=== PATIENT | male | born 1980 | race Caucasian/White ===

== ENCOUNTER 2018-03-02 20:45 | Observation (INO) ==
[2018-03-02] MEDS ORDERED: *HR* Nalbuphine 10 MG/ML AMPUL IVP ONE (23:05)
[2018-03-02] MEDS ORDERED: Ondansetron 4 MG/2 ML VIAL IVP ONE (23:05)
[2018-03-02] MEDS ORDERED: 0.9 % Sodium Chloride 1,000 ML IVC ONE (23:05)
--- NOTE | 2018-03-02 23:09 | Emergency Department Note ---
Disposition Clinical Impression: Biliary colic Disposition: Admitted As Inpatient Condition: Fair Abdominal Pain HPI - General Chief Complaint: ED Abdominal Pain Stated Complaint: abdominal pain Time Seen by Provider: 03/02/18 22:03 Source: patient, family Mode of arrival: private vehicle Limitations: no limitations Nursing Notes Reviewed: Yes Vital Signs Reviewed: Yes - History of Present Illness Pt Subjective Complaint: abdominal pain Onset (ago): week(s) Consistency: constant Location: RUQ, epigastric Pain Severity: moderate, severe Pain Scale: 7 Quality: stabbing, aching, fullness, sharp Radiation: none Migration to: no migration Improves with: nothing Worsens with: nothing Context: history of similar episodes (diagnosed with biliary colic [address] Strong this past . Is scheduled for meredith on Mar 17. Returns to ED tonight for increased pain. ) Associated symptoms: Reports: denies other symptoms. Denies: nausea, vomiting, diarrhea, fever, chills, constipation, dysuria, hematemesis, hematochezia, melena, hematuria, anorexia, syncope Treatments prior to arrival: NSAIDs, OTC medications - Related Data Previous Rx's Medication Instructions Recorded Cyclobenzaprine [Flexeril] 10 mg PO TID 10 Days tablet 01/24/15 Hydrocodone/Acetaminophen [[place] 1 each PO 1-3XD PRN 5 Days tablet 01/24/15 10-325 Tablet] Clindamycin [Cleocin] 150 mg PO Q6HR #8 capsule 01/10/16 OxyCODONE Immed Rel [Roxicodone 5 5 - 10 mg PO Q6HR PRN #30 tablet 01/10/16 MG] HYDROcodone/Acet 5/325 mg [[place] 1 - 2 tab PO Q6H PRN 3 Days #10 tab 02/21/18 5-325 mg] Ondansetron ODT [Zofran ODT] 4 mg SL Q8HR PRN #12 tab.rapdis 02/21/18 Allergies Allergy/AdvReac Type Severity Reaction Status Date / Time bupropion [From Wellbutrin] AdvReac Nausea Verified 02/21/18 07:14 steriod Allergy Rash Uncoded 01/10/16 11:49 All systems ED: reviewed and negative except as stated. Review of Systems: As Per HPI Constitutional: Denies: fever, chills, weakness Cardiovascular: Denies: chest pain, palpitations, edema, syncope Respiratory: Denies: dyspnea Gastrointestinal: Reports: as per HPI, abdominal pain. Denies: nausea, vomiting , diarrhea, constipation Genitourinary: Denies: dysuria, hematuria Musculoskeletal: Denies: back pain Neurological: Denies: weakness Hematological/Lymphatic: Denies: easy bleeding, easy bruising Abdominal Pain PMH - Past Medical History Medical history: Reports: GERD, hypertension, other Male Surgical History: Reports: Adenoidectomy, orthopedic, other, Tonsillectomy Psychiatric history: Reports: anxiety, depression, PTSD - Social History Smoking status: Current every day smoker Alcohol use: Reports: none Drug use: Reports: none Physical Exam - General Limitations: no limitations General appearance: alert, in no apparent distress - Head Head exam: atraumatic, normocephalic, normal inspection - Eye Eye exam: Present: normal appearance, PERRL. Absent: scleral icterus, conjunctival injection, periorbital swelling - ENT ENT exam: mucous membranes moist - Neck Neck exam: Present: normal inspection, full ROM, trachea midline. Absent: meningismus - Chest Chest inspection: Present: normal inspection - Respiratory Respiratory exam: Present: normal lung sounds bilaterally. Absent: respiratory distress - Cardiovascular Cardiovascular exam: Present: regular rate, normal rhythm, normal heart sounds - Abdominal Exam Abdominal exam: Present: soft, tenderness. Absent: distention, guarding, rebound, organomegaly, ascites, mass, pulsatile mass Abdominal tenderness: Present: RUQ, epigastrium - Extremities Exam Extremities exam: Present: normal inspection - Back Exam Back exam: Present: normal inspection - Neurological Exam Neurological exam: Present: alert, oriented X3, CN II-XII intact, normal gait - Psychiatric Psychiatric exam: Present: normal affect, normal mood - Skin Skin exam: Present: warm, dry, intact, normal color Course Course Narrative: Patient returns to the ER for evaluation and treatment of right upper quadrant abdominal pain. I saw this patient on February 21 for similar symptoms. He had a CT and lab work done. He was diagnosed with biliary colic second to cholelithiasis. He followed up with Dr. Strong this past . He is scheduled to have his gallbladder removed on the . He returns today because of intractable pain. He is not vomiting and has had no fever or chills. Labs and meds have been ordered as well as a right upper quadrant ultrasound to evaluate for possible cholecystitis. Pain is not improved with initial dose of pain medication. Patient's labs are normal with exception of glucose of 115. Right upper quadrant ultrasound is read by the radiologist as cholelithiasis without pericholecystic fluid or wall thickening. Case discussed with Dr. Strong. He will admit the patient to his service. - Consultations Consultation #1: Case discussed with Dr. Strong. He will admit the patient to his service. Time: 01:28 Vital Signs Temperature 97.9 F 03/02/18 21:02 Pulse Rate 70 03/02/18 21:02 Respiratory Rate 18 03/02/18 21:02 Blood Pressure 143/87 03/02/18 21:02 O2 Sat by Pulse Oximetry 98 03/02/18 21:02 Temperature 97.9 F 03/02/18 21:12 Pulse Rate 70 03/02/18 21:12 Respiratory Rate 18 03/02/18 21:12 Blood Pressure 143/87 03/02/18 21:12 O2 Sat by Pulse Oximetry 98 03/02/18 21:12 Oxygen Delivery Oxygen Delivery Room Air Abdominal Pain - Medical Records Medical records reviewed: Yes I reviewed the patient's medical records. - Lab Data Lab results reviewed: Yes I reviewed the patient's lab results. Lab results narrative: Laboratory Last Values WBC 9.4 K/mcL (4.3-11.1) 03/02/18 23:18 RBC 5.64 M/mcL (4.19-5.50) H 03/02/18 23:18 Hgb 16.5 g/dL (12.9-16.9) 03/02/18 23:18 Hct 47.2 % (37.5-50.1) 03/02/18 23:18 MCV 83.7 fL (83.0-100.0) 03/02/18 23:18 MCH 29.3 pg (28.0-33.3) 03/02/18 23: MCHC 35.0 g/dL (31.6-35.5) 03/02/18 23:18 RDW 13.0 % (11.5-14.5) 03/02/18 23:18 Plt Count 252 K/mcL (140-400) 03/02/18 23:18 MPV 11.0 fL (9.4-12.4) 03/02/18 23:18 Immature Gran % 0.4 % (0-4) 03/02/18 23:18 Seg Neutrophils % 60.7 % 03/02/18 23:18 Lymphocytes % 29.7 % 03/02/18 23:18 Monocytes % 7.1 % 03/02/18 23:18 Eosinophils % 1.6 % 03/02/18 23:18 Basophils % 0.5 % 03/02/18 23:18 Neutrophils # 5.7 K/mcL (1.6-8.9) 03/02/18 23:18 Lymphocytes # 2.8 K/mcL (0.6-4.6) 03/02/18 23:18 Monocytes # 0.7 K/mcL (0.0-1.3) 03/02/18 23:18 Eosinophils # 0.2 K/mcL (0.0-0.6) 03/02/18 23:18 Basophils # 0.1 K/mcL (0.0-0.2) 03/02/18 23:18 Sodium 138 mEq/L (136-145) 03/02/18 23:18 Potassium 3.6 mEq/L (3.5-5.1) 03/02/18 23:18 Chloride 104 mEq/L (98-107) 03/02/18 23:18 Carbon Dioxide 25 mEq/L (23-29) 03/02/18 23:18 BUN 11 mg/dL (6-20) 03/02/18 23:18 Creatinine 0.99 mg/dL (0.70-1.30) 03/02/18 23:18 Est GFR ( Amer) > 60 (> 60) 03/02/18 23:18 Est GFR (Non-Af Amer) > 60 (> 60) 03/02/18 23:18 BUN/Creatinine Ratio 11 (6-26) 03/02/18 23:18 Glucose 115 mg/dL (70-105) H 03/02/18 23:18 Calculated Osmolality 286 (280-300) 03/02/18 23:18 Calcium 9.6 mg/dL (8.6-10.3) 03/02/18 23:18 Total Bilirubin 0.4 mg/dL (0.3-1.0) 03/02/18 23:18 AST 24 Units/L (13-39) 03/02/18 23:18 ALT 37 Units/L (7-52) 03/02/18 23:18 Alkaline Phosphatase 72 Units/L (34-104) 03/02/18 23:18 Serum Total Protein 7.0 g/dL (6.4-8.9) 03/02/18 23:18 Albumin 4.2 g/dL (3.5-5.7) 03/02/18 23:18 Globulin 2.8 g/dL (2.4-3.5) 03/02/18 23:18 Albumin/Globulin Ratio 1.5 (1.1-2.2) 03/02/18 23:18 Lipase 15 Units/L (11-82) 03/02/18 23:18 - Radiology Data Radiology results reviewed: Yes I reviewed the patient's radiology results. Gallbladder Ultrasound 03/02/18 22:03 IMPRESSION: Cholelithiasis, without sonographic evidence of cholecystitis. With continued clinical concern, recommend HIDA scan for further evaluation. Fatty, enlarged liver. D/ / Adan Billy MD / Adan Billy MD Interpreting Provider: Adan Billy MD
[2018-03-02 23:28] LABS: Basophils # 0.1 K/mcL (0.0-0.2); Basophils % 0.5 %; Eosinophils # 0.2 K/mcL (0.0-0.6); Eosinophils % 1.6 %; Hematocrit 47.2 % (37.5-50.1); Hemoglobin 16.5 g/dL (12.9-16.9); Immature Granulocytes % 0.4 % (0-4); Lymphocytes # 2.8 K/mcL (0.6-4.6); Lymphocytes % 29.7 %; Mean Corpuscular Hemoglobin 29.3 pg (28.0-33.3); Mean Corpuscular Volume 83.7 fL (83.0-100.0); Monocytes # 0.7 K/mcL (0.0-1.3); Monocytes % 7.1 %; Neutrophils # 5.7 K/mcL (1.6-8.9); Platelet Count 252 K/mcL (140-400); Red Blood Count 5.64 M/mcL (4.19-5.50); Segmented Neutrophils % 60.7 %
[2018-03-02 23:45] LABS: Alanine Aminotransferase 37 Units/L (7-52); Albumin 4.2 g/dL (3.5-5.7); Albumin/Globulin Ratio 1.5 (1.1-2.2); Alkaline Phosphatase 72 Units/L (34-104); Aspartate Amino Transferase 24 Units/L (13-39); BUN/Creatinine Ratio 11 (6-26); Bilirubin,Total 0.4 mg/dL (0.3-1.0); Blood Urea Nitrogen 11 mg/dL (6-20); Calcium 9.6 mg/dL (8.6-10.3); Carbon Dioxide 25 mEq/L (23-29); Chloride 104 mEq/L (98-107); Globulin 2.8 g/dL (2.4-3.5); Glucose 115 mg/dL (70-105); Lipase 15 Units/L (11-82); Osmolality,Calculated 286 (280-300); Potassium 3.6 mEq/L (3.5-5.1); Sodium 138 mEq/L (136-145); eGFR For Non-African Americans > 60 (> 60)
[2018-03-03] MEDS ORDERED: *HR* FentaNYL (PF) 100 MCG/2 ML VIAL IVP ONE (00:32)
[2018-03-03] MEDS ORDERED: Ondansetron 4 MG/2 ML VIAL IVP PRN ×2 (01:42→14:17)
[2018-03-03] MEDS ORDERED: Pantoprazole 40 MG VIAL IVP SCH (02:00)
[2018-03-03] MEDS: 0.9 % Sodium Chloride 1,000 ML IVC SCH ×2 (02:39→08:07)
[2018-03-03] MEDS: MORPHINE SUL Oral CONC 10 MG/0.5 ML ORAL.SYG SL PRN ×2 (03:50→08:35)
[2018-03-03] MEDS ORDERED: *HR* LORazepam 2 MG/ML VIAL IVP ONE (08:09)
--- NOTE | 2018-03-03 08:27 | General Surg History&Physical ---
<Unique Rosales - Last Filed: 03/03/18 08:22> Date of Encounter: 03/03/18 Time of Encounter: 08:00 Assessment and Plan (1) Biliary colic Current Visit: Yes Status: Acute The assessment and plan as outlined above was discussed with the patient and/or family members who expressed understanding and agreement. All questions were answered. Will plan for surgical intervention (laparoscopic cholecystectomy without cholangiogram) in the next 24 to 48 hours. Recommendations, risks, and benefits have been reviewed with the patient and his and he is agreeable to proceed. A signed consent has been left with the supercharge repair supervisor in the surgery department. He has active outside the hospital and is able to achieve greater than 4 Mets of activity. We will, however, order of preoperative EKG given his smoking and obesity history. Plan: G.I. and DVT prophylaxis continue supportive care and discomfort management NPO IV fluids IV antibiotics scheduled duonebs in the setting of preoperative and significant smoking history aggressive pulmonary toileting to begin now consult RT EKG (2) Cholelithiasis Current Visit: Yes Status: Acute The assessment and plan as outlined above was discussed with the patient and/or family members who expressed understanding and agreement. All questions were answered. See above Qualifiers: Cholelithiasis location: gallbladder Cholecystitis presence: without cholecystitis Biliary obstruction: without biliary obstruction Qualified Code(s): K80.20 - Calculus of gallbladder without cholecystitis without obstruction (3) Sleep apnea Current Visit: Yes Status: Acute The assessment and plan as outlined above was discussed with the patient and/or family members who expressed understanding and agreement. All questions were answered. See assessment and plan above otherwise continue home CPAP use that his previous settings Qualifiers: Sleep apnea type: unspecified type Qualified Code(s): G47.30 - Sleep apnea , unspecified (4) Smoking history Current Visit: Yes Status: Acute The assessment and plan as outlined above was discussed with the patient and/or family members who expressed understanding and agreement. All questions were answered. Smoking cessation is encouraged. Scheduled duonebs starting now aggressive pulmonary toileting starting now patient states duonebs give him "panic attacks." I will order a one-time dose of 0.5 mg lorazepam IV (5) Morbid obesity with BMI of 40.0-44.9, adult Current Visit: Yes Status: Acute The assessment and plan as outlined above was discussed with the patient and/or family members who expressed understanding and agreement. All questions were answered. Dietary consult History of Present Illness Chief complaint: right upper abdominal pain HPI: Mr. Saunders is a 37 year old male who presented on 03/02/2108 for complaints of RUQ pain. He was recently seen by Dr. Strong with reports of a sensation of gas bubble for the previous week, right upper quadrant pain that was sharpen stabbing, radiated to the right upper back, resolved and then returned 2 days later. That time he reported nausea without vomiting, denied diarrhea or constipation. A CT scan on 02/21/2018 demonstrated gallstones, large size, and at the level of the cystic duct. Plans made for a laparoscopic cholecystectomy for biliary colic. He presented to the emergency department at the date listed with complaints of worsening abdominal pain that is constant, moderate to severe, 7 out of 10, stabbing, aching, fullness, no radiation, no aggravating or alleviating factors , and associated with nausea, and vomiting. He denies fever, chills, chest pain , shortness of breath, easy bruising, black, bloody, or tarry stool, changes in bowel habits. He does noted history of sleep apnea and is using his nasal CPAP upon my entry into the room. His past medical, surgical, and social history's have been reviewed and updated as indicated per the EMR. Past Med Surg Social Fam HX - Past Medical History Source: patient, old records reviewed Medical history: GERD (Oconnell's esophagus), hypertension, other (Sleep apnea) Additional medical history: hiatal hernia. sleep apnea Psychiatric history: anxiety, depression, PTSD - Past Surgical History Surgical History: tonsilectomy, other (Bilateral tympanic ostomy tubes, endoscopy times 4, right shoulder surgery) Additional surgical history: ear tubes - Social History Smoking Status: Current every day smoker Packs per day: One pack per day for greater than 20 years Smokeless Tobacco Status: No Alcohol use: none Drug use: none Occupational status: employed Current living situation: Home - Independent Activity Level: Independent ambulation - Family History Mother Family Member Ethnicity: Non- Living Status: Still Living Hx Family Endocrine Disorder: Yes (dm) Father Son Family Member Ethnicity: Non- Hx Family Cardiac Disorders: Yes (htn) Hx Family Endocrine Disorder: Yes (dm) Medications and Allergies Aspirin [Lo-Dose Aspirin EC] 81 mg PO DAILY 03/03/18 [History] Cetirizine HCl [All Day Allergy] 10 mg PO DAILY 03/03/18 [History] Cholecalciferol (D-3) [Vitamin D] 2,000 unit PO DAILY 03/03/18 [History] Dicyclomine [Bentyl] 10 mg PO DAILY 03/03/18 [History] Esomeprazole Magnesium [Nexium] 40 mg PO BID 03/03/18 [History] Montelukast [Singulair] 10 mg PO HS 03/03/18 [History] [place]-3 Fatty Acids [Fish Oil] 300 mg PO DAILY 03/03/18 [History] Potassium Chloride [Klor-Con 10] 10 meq PO DAILY 03/03/18 [History] Propranolol [Inderal] 30 mg PO TID 03/03/18 [History] Sertraline 03/03/18 [History] 3 Allergy/AdvReac Type Severity Reaction Status Date / Time bupropion [From Wellbutrin] AdvReac Nausea Verified 02/21/18 07:14 steriod Allergy Rash Uncoded 01/10/16 11:49 Review of Systems All systems PM: reviewed and no additional remarkable complaints except as stated All systems PM: The remainder of the systems were reviewed and are negative General Surgery Exam Initial Vital Signs Temp Pulse Resp BP Pulse Ox 97.9 F 70 18 143/87 98 03/02/18 21:02 03/02/18 21:02 03/02/18 21:02 03/02/18 21:02 03/02/18 21:02 VITAL SIGNS: Reviewed. See [facility] GENERAL: In no apparent distress. HEENT: Normocephalic, atraumatic, pupils are equal and reactive, extraocular motions intact, oropharynx is pink and moist, there is no neck adenopathy or JVD noted. Nasal CPAP in use CHEST/RESPIRATORY: The thorax is free from signs of trauma. Lung sounds: clear to auscultation, normal respiratory effort CARDIAC: Distant heart tones; Regular rate and rhythm. Normal S1 and S2, without murmurs, gallops, or rubs. VASCULAR: No Edema. 2+ peripheral pulses. ABDOMEN: obese, protuberant, active bowel sounds, positive Negro sign MUSCULOSKELETAL: Good range of motion of all major joints. Extremities without clubbing, cyanosis or edema. NEUROLOGIC EXAM: Alert and oriented x 3. Speech normal. Follows commands. PSYCHIATRIC: Mood normal. SKIN: No rash or lesions. Results - Labs 03/02/18 23:18 03/02/18 23:18 Abnormal lab results RBC 5.64 M/mcL (4.19-5.50) H 03/02/18 23:18 Glucose 115 mg/dL (70-105) H 03/02/18 23:18 All other labs normal. - Imaging CT scan - abdomen: report reviewed (02/21/2018) CT scan - pelvis: report reviewed US - abdomen: report reviewed, image reviewed <Wesley Strong - Last Filed: 03/03/18 10:06> Date of Encounter: 03/03/18 Assessment and Plan (1) Biliary colic Current Visit: Yes Status: Acute The assessment and plan as outlined above was discussed with the patient and/or family members who expressed understanding and agreement. All questions were answered. (2) Cholelithiasis Current Visit: Yes Status: Acute The assessment and plan as outlined above was discussed with the patient and/or family members who expressed understanding and agreement. All questions were answered. Qualifiers: Cholelithiasis location: gallbladder Cholecystitis presence: without cholecystitis Biliary obstruction: without biliary obstruction Qualified Code(s): K80.20 - Calculus of gallbladder without cholecystitis without obstruction (3) Sleep apnea Current Visit: Yes Status: Acute The assessment and plan as outlined above was discussed with the patient and/or family members who expressed understanding and agreement. All questions were answered. Qualifiers: Sleep apnea type: unspecified type Qualified Code(s): G47.30 - Sleep apnea , unspecified (4) Smoking history Current Visit: Yes Status: Acute The assessment and plan as outlined above was discussed with the patient and/or family members who expressed understanding and agreement. All questions were answered. (5) Morbid obesity with BMI of 40.0-44.9, adult Current Visit: Yes Status: Acute The assessment and plan as outlined above was discussed with the patient and/or family members who expressed understanding and agreement. All questions were answered. History of Present Illness HPI: Mr. Saunders is a 37 year old male Review of Systems All systems PM: The remainder of the systems were reviewed and are negative General Surgery Exam Initial Vital Signs Temp Pulse Resp BP Pulse Ox 97.9 F 70 18 143/87 98 03/02/18 21:02 03/02/18 21:02 03/02/18 21:02 03/02/18 21:02 03/02/18 21:02 Results - Labs 03/02/18 23:18 03/02/18 23:18 Abnormal lab results RBC 5.64 M/mcL (4.19-5.50) H 03/02/18 23:18 Glucose 115 mg/dL (70-105) H 03/02/18 23:18 All other labs normal. - Attending Attestation I have personally performed a face to face evaluation on this patient. I have reviewed and agree with the care plan. History and Exam by me shows: I reviewed the above assessment and evaluation with the mesh practitioner and agree with the above plan. We will perform a laparoscopic cholecystectomy today.
[2018-03-03] MEDS ORDERED: Piperacillin/Tazobactam 3.375 GM in Water for inj. (sterile) 20 ML 20 ML IVP SCH (08:38)
[2018-03-03] MEDS ORDERED: Piperacillin/Tazobactam 3.375 GM in 0.9 % Sodium Chloride Mini Bag 100 ML IVP SCH ×2 (09:15→19:00)
--- NOTE | 2018-03-03 10:09 | Anesthesia Evaluation PreOp ---
Date of Encounter: 03/03/18 Time of Encounter: 10:45 - Past History Planned Operation: Laparoscopic Cholecystectomy Cardiac History: Denies any Significant Hx Pulmonary History: Smoker (21 years), JOAN Dx (uses CPAP) MARKETING UNDERWRITER History: Denies Any Significant HX Other Medical History: GERD, Other (obesity BMI=41.1) Anesthesia History: Past Anesthesia, Problems (wild emergence) Alcohol Use: occasionally Drug use: none Medications and Allergies Aspirin [Lo-Dose Aspirin EC] 81 mg PO DAILY 03/03/18 [History] Cetirizine HCl [All Day Allergy] 10 mg PO DAILY 03/03/18 [History] Cholecalciferol (D-3) [Vitamin D] 2,000 unit PO DAILY 03/03/18 [History] Dicyclomine [Bentyl] 20 mg PO DAILY 03/03/18 [History] Esomeprazole Magnesium [Nexium] 40 mg PO BID 03/03/18 [History] Montelukast [Singulair] 10 mg PO HS 03/03/18 [History] [place]-3 Fatty Acids [Fish Oil] 300 mg PO DAILY 03/03/18 [History] Potassium Chloride [Klor-Con 10] 10 meq PO DAILY 03/03/18 [History] Propranolol [Inderal] 30 mg PO TID 03/03/18 [History] Sertraline [Zoloft] 50 mg PO DAILY 03/03/18 [History] 3 Allergy/AdvReac Type Severity Reaction Status Date / Time bupropion [From Wellbutrin] AdvReac Nausea Verified 02/21/18 07:14 steriod Allergy Rash Uncoded 01/10/16 11:49 - Meds/Allergy Pre-op Review Medications Reviewed: Yes Allergies Reviewed: Yes Beta Blockers on Current Med List: No Anesthesia Results - Labs 03/02/18 23:18 03/02/18 23:18 - Imaging EKG: report reviewed (03/03/2018 SINUS RHYTHM, LOW VOLTAGE PRECORDIAL LEADS) Anesthesia Exam Vital Signs/O2 Sat, Most Current Temp Pulse Resp BP Pulse Ox 97.7 F 52 16 120/79 96 03/03/18 07:33 03/03/18 07:33 03/03/18 07:33 03/03/18 07:33 03/03/18 07:33 Height: 6'2''/1.88m Weight: 320 lbs/145 kg NPO (# of Hours): 8 Pain Scale: 5 (abdomen) Pain Scale Used: Numeric (1 - 10) - HEENT Pupil (Motor): EOMI Mallampati: II Teeth: Edentulous Oral Opening: Greater than 3 - MARKETING UNDERWRITER LOC: Oriented MARKETING UNDERWRITER Motor: Normal RUE, Normal LUE, Normal RLE, Normal LLE, Normal Face MARKETING UNDERWRITER Sensory: Normal: RUE, LUE, RLE, LLE, Face - Cardiac Rhythm: Regular Murmur: None - Pulmonary Breath Sounds: bilateral Clear Respiratory Effort: Symmetrical Anesthesia Assess/Plan ASA Score: 3 Modified Amberly Scale for Level of Consciousness: Cooperative, oriented, and tranquil Anesthetic Plan: General Monitoring Plan: Standard Monitors Recovery Plan: PACU
[2018-03-03] MEDS ORDERED: Bupivacaine/EPI 1:200k 0.5%PF 30 ML VIAL ONE (10:20)
[2018-03-03] MEDS ORDERED: Dexamethasone 4 MG/ML VIAL ONE (10:25)
[2018-03-03] MEDS ORDERED: *HR* Rocuronium Bromide 50 MG/5 ML VIAL ONE (10:25)
[2018-03-03] MEDS ORDERED: *HR* FentaNYL (PF) 100 MCG/2 ML VIAL ONE ×3 (10:25→12:02)
[2018-03-03] MEDS ORDERED: Lidocaine -MPF 2% 2 ML VIAL ONE (10:25)
[2018-03-03] MEDS ORDERED: *HR* Midazolam HCl 2 MG/2 ML VIAL ONE (10:25)
[2018-03-03] MEDS ORDERED: Ondansetron 4 MG/2 ML VIAL ONE (10:25)
[2018-03-03] MEDS ORDERED: *HR* Propofol 200 MG/20 ML VIAL IVP ONE (10:25)
[2018-03-03] MEDS ORDERED: *HR* Succinylcholine 200 MG/10 ML VIAL IVP ONE (10:25)
[2018-03-03] MEDS ORDERED: Lidocaine -MPF 4% 5 ML AMPUL ONE (10:26)
[2018-03-03] MEDS: Ipratropium/Albuterol Neb 3 ML IH SCH ×2 (10:31→10:32)
[2018-03-03] MEDS ORDERED: Acetaminophen IV 1,000 MG/100 ML INFUS..BTL ONE (10:49)
[2018-03-03] MEDS ORDERED: *HR* OxyCODONE Immed Rel 5 MG TABLET PO PRN (11:26)
[2018-03-03] MEDS ORDERED: *HR* Morphine 2 MG/ML SYRINGE IVP PRN (11:26)
[2018-03-03] MEDS ORDERED: Neostigmine Methylsulfate 3 MG/3 ML SYRINGE ONE (11:38)
[2018-03-03] MEDS ORDERED: *HR* Magnesium Sulfate 1 GM/2 ML VIAL ONE (12:02)
--- NOTE | 2018-03-03 12:05 | Operative Note ---
Date of procedure: 03/03/18 Pre-op diagnosis: Biliary colic Post-op diagnosis: same Procedure: Laparoscopic cholecystectomy Anesthesia: GETA Surgeon: Wesley Strong Was there an phlebotomy lab assistant present: Yes Section Leader: Tessa Velez Estimated blood loss (cc): 40 Specimen: gallbladder and contents Condition: stable Disposition: PACU Procedure in Detail: Date of surgery: 03/03/18 After properly identifying the patient, the patient was brought to the operating room and placed in the supine position. After proper IV sedation was achieved followed by general endotracheal intubation, the patient's abdomen was prepped and draped in a normal sterile fashion. A timeout was performed noting the patient's name and type of procedure to be performed. An 11 blade scalpel was used to make an incision above the level of the umbilicus down to the level of the rectus fascia which was also incised. Once the abdomen was entered a 12 mm port was placed to the incision and the abdomen was insufflated with carbon dioxide. A laparoscopic camera was placed through the port which showed no injury to the intra-abdominal organs upon entry. A subxiphoid 5 mm port and a right subcostal margin 5 mm port were then placed under direct camera visualization. The patient was placed in a Trendelenburg position and the gallbladder was identified and retracted superiorly. The peritoneal covering overlying the cystic duct and cystic artery were then bluntly dissected away with a [place] dissector. The cystic duct and cystic artery with a further isolated, clipped with laparoscopic clips, and incised laparoscopic scissors. The gallbladder was then dissected away from the gallbladder fossa with Bovie cauterization while Bovie cautery was used to maintain hemostasis. Once the gallbladder was dissected free it was removed from the abdomen via an Endobag and reinspection of the right upper quadrant demonstrated maintenance of hemostasis. The right upper quadrant was irrigated with normal saline solution and all ports were then removed from the abdomen after the abdomen was desufflated. The rectus fascia for the supraumbilical incision was reapproximated with a [id number] 0 Vicryl suture. The subcutaneous tissue was reapproximated with a 3-0 Vicryl suture and the epidermal and dermal layers for the remaining incisions were closed with 4-0 Monocryl sutures. Needle, sponge, and answering counts were correct 2 and the incisions were covered with Steri-Strips and Band -Aids. The patient was aroused from IV sedation, extubated in the operating room without complication, and transported to the recovery room stable condition.
[2018-03-03] MEDS ORDERED: Ringers Solution, Lactated 1,000 ML ONE (12:47)
--- NOTE | 2018-03-03 13:25 | Anesthesia Evaluation Post Op ---
Date of Encounter: 03/03/18 Time of Encounter: 13:25 - Vital Signs Vital Signs: Vital Signs/O2 Sat, Most Current Temp Pulse Resp BP Pulse Ox 97.8 F 69 17 143/89 97 03/03/18 12:50 03/03/18 13:10 03/03/18 13:10 03/03/18 13:10 03/03/18 13:00 - Lungs Lungs: Clear Ascult./Percussion - Airway Airway: Non-obstructed - Cardiovascular Regular Rate - Mental Status Mental Status: Alert & Oriented, Answers Appropriately - Pain Pain Scale: 5 Pain Scale used: Numeric (1 - 10) - Nausea Vomiting Nausea Vomiting: Not Present - Hydration Hydration: Ice chips, Has not voided - Discharge PostOp Status: Transfer Patient to floor
[2018-03-03] MEDS ORDERED: *HR* OxyCODONE/APAP 7.5/325 TABLET PO PRN (14:17)
[2018-03-03] MEDS ORDERED: MORPHINE SUL Oral CONC 10 MG/0.5 ML ORAL.SYG SL PRN (14:17)
[2018-03-03] MEDS ORDERED: 0.9 % Sodium Chloride 1,000 ML IVC SCH (14:17)
[2018-03-03] MEDS ORDERED: Ipratropium/Albuterol Neb 3 ML IH SCH (16:00)
--- NOTE | 2018-03-03 16:01 | Discharge Summary ---
Orders not resulted at time of discharge: Pending orders 03/03/18 12:24 Surgical Pathology [PTH] Routine 03/04/18 04:00 Bilirubin, Total And Fractions AM 0400 Complete Blood Count [HEME] AM 0400 Comprehensive Metabolic Panel AM 0400 Date of Encounter: 03/03/18 Time of Encounter: 16:00 - Discharge Diagnosis (1) Biliary colic Priority: Primary Status: Acute General Surgery Exam Initial Vital Signs Temp Pulse Resp BP Pulse Ox 97.9 F 70 18 143/87 98 03/02/18 21:02 03/02/18 21:02 03/02/18 21:02 03/02/18 21:02 03/02/18 21:02 - General physical appearance well developed, well nourished, no distress - Eyes normal ocular movement - ENT normal mucosa, atraumatic, normocephalic - Neck trachea midline - Respiratory normal respiratory effort, clear to auscultation - Cardiovascular Cardiovascular exam: Present: RRR - Abdomen Abdomen general surgery: Present: bowel sounds present, soft, tender (expected) - Incision Incision: Present: clean and dry, intact - Integumentary Integumentary general surgery: Present: warm and dry - Neurologic Present: CN 2-12 grossly intact - Psychiatric Psychiatric general surgery: Present: appropriate, oriented to person, oriented to place, oriented to time, speech is normal, memory intact - Hospital Course Hospital course: Mr. Saunders is a 37 year old male with biliary colic. He was taken to the operating room for a laparoscopic cholecystectomy with Dr. Strong. Post- operative, he is tolerating liquids without nausea/vomiting. His vitals are stable and he is afebrile. His pain is well controlled. He is voiding and ambulating without difficulty. Will discharge to home and plan for outpatient follow-up in the next 10-14 days. - Time Spent with Patient Total time spent providing and/or coordinating discharge services: Less than 30 minutes - Discharge Medications Prescriptions: OxyCODONE/APAP 5/325 [Percocet 5/325 MG] 1 each PO Q6HR PRN 5 Days #20 tablet PRN Reason: Pain Docusate [Colace] 100 mg PO BID #30 capsule Ibuprofen [Ibu] 800 mg PO TID #50 tablet Home Medications: Aspirin [Lo-Dose Aspirin EC] 81 mg PO DAILY 03/03/18 [History] Cetirizine HCl [All Day Allergy] 10 mg PO DAILY 03/03/18 [History] Cholecalciferol (D-3) [Vitamin D] 2,000 unit PO DAILY 03/03/18 [History] Dicyclomine [Bentyl] 20 mg PO DAILY 03/03/18 [History] Docusate [Colace] 100 mg PO BID #30 capsule 03/03/18 [Rx] Esomeprazole Magnesium [Nexium] 40 mg PO BID 03/03/18 [History] Ibuprofen [Ibu] 800 mg PO TID #50 tablet 03/03/18 [Rx] Montelukast [Singulair] 10 mg PO HS 03/03/18 [History] [place]-3 Fatty Acids [Fish Oil] 300 mg PO DAILY 03/03/18 [History] OxyCODONE/APAP 5/325 [Percocet 5/325 MG] 1 each PO Q6HR PRN 5 Days #20 tablet [Rx] Potassium Chloride [Klor-Con 10] 10 meq PO DAILY 03/03/18 [History] Propranolol [Inderal] 30 mg PO TID 03/03/18 [History] Sertraline [Zoloft] 50 mg PO DAILY 03/03/18 [History] Allergies/Adverse Reactions: 3 Allergy/AdvReac Type Severity Reaction Status Date / Time bupropion [From Wellbutrin] AdvReac Nausea Verified 02/21/18 07:14 steriod Allergy Rash Uncoded 01/10/16 11:49 Date of admission: 03/03/18 01:38 [facility]: [facility] Consults: 03/03/18 08:37 consult to duct cleaner [Consult to Nutrition] [CONS] Routine Comment: morbid obesity, smoking history, risk prevention Consulting Provider: NUTRITION Reason for Dietary Consult: Diet Education Discharging clinician: Chiara Patel Anticipated date of discharge: 03/03/18 Labs on day of discharge: Labs from last 24 hours 03/03/18 06:58 POC Glucose 104 H - Patient Status Disposition: Home, Self-Care Condition: Good Functional capacity at discharge: independent ambulation Overall status at discharge: patient is progressing back to baseline - Discharge Instructions Follow Up With: [facility]Primary Care Provider[facility] - Chiara Patel NUTRITION HELPER [Advanced Practice Nurse] - 03/16/18 2:15 pm (surgery) Forms: Work/School Release Additional Instructions: Surgery instructions: #1 May shower 03/05/18, no tub bath or swimming for 2 weeks #2 No lifting/pushing/pulling greater than 15 lb. for a total of 2 weeks #3 No driving until off narcotics and able to react safely in the care #4 Cleanse incisions with soap and water and pat dry daily #5 May climb stairs - Diet and Activity Activity: other (see additional instructions above) Diet: advance to your usual diet - Attending Attestation For this encounter, I have reviewed the GRUBBER or PA documentation, treatment plan, and medical decision making; and I have had face to face time with this patient.
[2018-03-03 17:04] VITALS: BP 110/76
[2018-03-03] MEDS ORDERED: *HR* Heparin 5,000 UNIT/ML VIAL SQ SCH ×2 (18:00)
[2018-03-04] MEDS ORDERED: Pantoprazole 40 MG VIAL IVP SCH (09:00)
== END 2018-03-03 17:04 | disposition home or self-care (01) ==
LOC: EMEROOARM 20:45 → 2SOUTHHOLD 20:45
PROVIDERS: ADMIT Surgery; ATTEND Surgery